=== PATIENT | male | born 1990 | race African-American/Black ===

== ENCOUNTER 2017-09-14 08:54 | Emergency (ER) | payer OTHER ==
[~2017-09-14] VITALS: Ht 172.7 cm; Wt 86.2 kg
[2017-09-14] MEDS ORDERED: MUCINEX1200 MG PO (10:49)
[2017-09-14] MEDS ORDERED: OSEL75CA PO (10:49)
== END 2017-09-14 11:18 | disposition home or self-care (01) ==
LOC: ER 08:54
DX: J09.X2 Influenza due to identified novel influenza A virus with other respiratory manifestations (principal); B34.9 Viral infection, unspecified

== ENCOUNTER 2023-09-11 13:41 | Emergency (ER) | payer OTHER ==
[~2023-09-11] VITALS: Ht 175.3 cm; Wt 77.1 kg
[~2023-09-11 13:41] MED LIST: MUCINEX1200 MG PO; OSEL75CA PO
[2023-09-11] MEDS ORDERED: ROSUVASTATIN CA10 MG PO (14:37)
[2023-09-11] MEDS ORDERED: VALSARTAN160 MG PO (14:38)
== END 2023-09-11 16:43 | disposition home or self-care (01) ==
LOC: ER 13:41
DX: R00.2 Palpitations (principal); F41.9 Anxiety disorder, unspecified

== ENCOUNTER 2024-07-30 07:21 | Outpatient (CLI) | payer OTHER ==
[~2024-07-30 07:21] MED LIST changes: +ROSUVASTATIN CA10 MG PO; +VALSARTAN160 MG PO
== END 2024-07-30 07:23 | disposition home or self-care (01) ==
LOC: NUCLEAR 07:21
PROVIDERS: ATTEND Internal Medicine Cardiovascular Disease
DX: R07.2 Precordial pain (principal)